=== PATIENT | female | born 1980 | race Caucasian/White ===

== ENCOUNTER 2022-02-06 19:25 | Emergency (ER) | payer OTHER ==
[~2022-02-06] VITALS: Ht 160 cm; Wt 70.3 kg
[2022-02-06] MEDS ORDERED: CLINDAMYCIN PHO30 GM TOP (19:45)
[2022-02-06] MEDS ORDERED: AZELAIC ACID50 GM TOP (19:45)
[2022-02-06] MEDS ORDERED: TRETINOIN20 G1 TOP (19:46)
[2022-02-06] MEDS ORDERED: MINOCYCLINE HCL50 MG PO (19:46)
[2022-02-06] MEDS ORDERED: CYCLOBENZAPRINE10 MG PO (20:49)
[2022-02-06] MEDS ORDERED: VENTOLIN HFA18 GM INH (20:49)
[2022-02-06] MEDS ORDERED: BENZONATATE100 MG PO (20:49)
== END 2022-02-06 21:14 | disposition home or self-care (01) ==
LOC: ED 19:25
DX: J10.1 Influenza due to other identified influenza virus with other respiratory manifestations (principal); Z20.822 Contact with and (suspected) exposure to COVID-19; F17.200 Nicotine dependence, unspecified, uncomplicated; Z79.899 Other long term (current) drug therapy
CPT/HCPCS: 71045; 87502; 96372; 99285-25; J1885; U0003